=== PATIENT | male | born 1970 | race Caucasian/White ===

== ENCOUNTER 2021-12-31 18:21 | Emergency (ER) | payer MEDICAID | END 2021-12-31 19:10 | disposition left against medical advice (07) | LOC: DL.ED 18:21 | DX: Z53.21 Procedure and treatment not carried out due to patient leaving prior to being seen by health care provider (principal) ==

== ENCOUNTER 2022-07-04 20:21 | Emergency (ER) | payer MEDICAID ==
[2022-07-04 20:16] LABS: ANION GAP 18.6 mEq/L (7-13); CHLORIDE,CL 102 mmol/L (98-107); SODIUM,NA 140 mmol/L (136-145)
[2022-07-04 20:17] LABS: ESTIMATED GFR 93 mL/min (>=60)
[2022-07-04] MEDS ORDERED: Sodium Chloride 0.9% 1,000 ML IV ONE (20:25)
[2022-07-04 20:43] LABS: AMPHETAMINES,URINE NEGATIVE (NEGATIVE); BARBITURATES,URINE NEGATIVE (NEGATIVE); BENZODIAZEPINE,URINE NEGATIVE (NEGATIVE); MDMA (ECSTASY), URINE NEGATIVE (NEGATIVE); METHADONE,URINE NEGATIVE (NEGATIVE); METHAMPHETAMINES,URINE NEGATIVE (NEGATIVE); OPIATES,URINE NEGATIVE (NEGATIVE); OXYCODONE,URINE NEGATIVE (NEGATIVE); PHENCYCLIDINE,URINE NEGATIVE (NEGATIVE); TCA,URINE NEGATIVE (NEGATIVE)
[2022-07-04] MEDS ORDERED: HYDROmorphone 0.5 MG/0.5 ML Syringe IVPUSH ONE (20:53)
== END 2022-07-04 21:14 | disposition home or self-care (01) ==
LOC: DL.ED 20:21
DX: M54.50 Low back pain, unspecified (principal); M25.561 Pain in right knee; G89.29 Other chronic pain; F10.10 Alcohol abuse, uncomplicated; R44.1 Visual hallucinations; Z91.030 Bee allergy status; Z88.5 Allergy status to narcotic agent
CPT/HCPCS: 36415; 80053; 80305; 80307; 81001; 83605; 85025; 96374; 99284; J1170; J7030; 99283

== ENCOUNTER 2022-08-06 19:39 | Emergency (ER) | payer MEDICAID | END 2022-08-06 20:37 | disposition left against medical advice (07) | LOC: DL.ED 19:39 | DX: Z53.21 Procedure and treatment not carried out due to patient leaving prior to being seen by health care provider (principal) | CPT/HCPCS: 73562-RT ==

== ENCOUNTER 2023-01-02 16:48 | Inpatient (IN) | payer MEDICAID ==
[2023-01-02] MEDS ORDERED: Sodium Chloride 0.9% 10 ML Syringe FLUSH PRN (16:54)
[2023-01-02] MEDS ORDERED: Sodium Chloride 0.9% 1,000 ML IV ONE ×2 (16:54→17:53)
[2023-01-02] MEDS ORDERED: levETIRAcetam in NaCl (iso-os) 3,000 MG in Premix Bag 1 BAG IV ONE ×2 (17:08)
[2023-01-02 17:18] LABS: BASOPHILS PERCENT AUTO 0.3 % (0.0-1.0); EOSINOPHILS PERCENT AUTO 5.7 % (1.0-3.0); HEMATOCRIT 47.6 % (40.0-54.0); HEMOGLOBIN 16.2 g/dL (14.0-18.0); LYMPHOCYTES PERCENT AUTO 41.9 % (20.5-50.1); MEAN CORPUSCULAR HEMOGLOBIN 31.4 pg (27.0-34.0); MEAN CORPUSCULAR VOLUME 92.2 fL (80-100); MONOCYTES PERCENT AUTO 10.7 % (2-8); NEUTROPHILS PERCENT AUTO 41.4 % (42.2-75.2); PLATELET COUNT,PLT 406 10^3/uL (150-450); RED BLOOD CELL COUNT 5.16 10^6/uL (4.6-6.2); WHITE BLOOD CELL COUNT,WBC 8.9 10^3/uL (5.0-10.0)
[2023-01-02 17:34] LABS: A/G RATIO 0.9; ALBUMIN 3.4 g/dL (3.4-5.0); ANION GAP 16.9 mEq/L (7-13); BILIRUBIN TOTAL 0.2 mg/dL (0.2-1.0); CALCIUM 8.7 mg/dL (8.5-10.1); CREATININE 0.99 mg/dL (0.70-1.30); EST CRCL DRUG DOSING (CG) 95.08 mL/min; POTASSIUM,K 2.9 mmol/L (3.5-5.1); PROTEIN TOTAL,TP 7.2 g/dL (6.4-8.2)
[2023-01-02 17:39] LABS: APPEARANCE,URINE CLEAR (CLEAR); BILIRUBIN,URINE NEGATIVE (NEGATIVE); COLOR,URINE YELLOW (YELLOW); GLUCOSE,URINE NEGATIVE (NEGATIVE); KETONES,URINE NEGATIVE (NEGATIVE); LEUKOCYTE ESTERASE,URINE NEGATIVE (NEGATIVE); NITRITE,URINE NEGATIVE (NEGATIVE); OCCULT BLOOD,URINE TRACE-INTACT (NEGATIVE); PH,URINE 6.5 (5.0-9.0); PROTEIN,URINE NEGATIVE (NEGATIVE); UROBILINOGEN,URINE 0.2 mg/dL (0.2-1.0)
[2023-01-02 17:44] LABS: AMPHETAMINES,URINE NEGATIVE (NEGATIVE); BARBITURATES,URINE NEGATIVE (NEGATIVE); BENZODIAZEPINE,URINE NEGATIVE (NEGATIVE); MDMA (ECSTASY), URINE NEGATIVE (NEGATIVE); METHADONE,URINE NEGATIVE (NEGATIVE); METHAMPHETAMINES,URINE NEGATIVE (NEGATIVE); OPIATES,URINE NEGATIVE (NEGATIVE); PHENCYCLIDINE,URINE NEGATIVE (NEGATIVE); TCA,URINE NEGATIVE (NEGATIVE)
[2023-01-02 17:45] LABS: OXYCODONE,URINE NEGATIVE (NEGATIVE)
[2023-01-02 17:47] LABS: LACTIC ACID 4.6 mmol/L (0.4-2.0)
[2023-01-02] MEDS ORDERED: Potassium Chloride 10 MEQ Tab.ER PO ONE (17:52)
[2023-01-02] MEDS ORDERED: Potassium Chloride 10 MEQ in Premix Bag 1 BAG IV ONE (17:52)
[2023-01-02 17:54] LABS: BACTERIA,URINE NOT SEEN /HPF (0-FEW/HPF); EPITHELIAL CELLS,URINE NOT SEEN /HPF (NOT SEEN); RBC,URINE 0-5 /HPF (0-5); WBC,URINE NOT SEEN /HPF (0-5/HPF)
[2023-01-02 18:04] LABS: PROTHROMBIN TIME 10.3 SEC (9.0-12.0); PTT,PARTIAL THROMBOPLSTIN TIME 23.5 SEC (22.0-34.0)
[2023-01-02] MEDS ORDERED: Ondansetron 4 MG/2 ML SDV IVPUSH ONE (19:17)
[2023-01-02] MEDS ORDERED: Bisacodyl 5 MG Tab PO PRN (22:00)
[2023-01-02] MEDS ORDERED: Acetaminophen 325 MG Tab PO PRN (22:00)
[2023-01-02] MEDS ORDERED: Docusate Sodium 100 MG Cap PO PRN (22:00)
[2023-01-02] MEDS ORDERED: LORazepam 2 MG/ML SDV IV PRN (22:09)
[2023-01-02] MEDS ORDERED: LORazepam 0.5 MG Tab PO PRN (22:09)
[2023-01-02] MEDS ORDERED: levETIRAcetam 500 MG Tab PO SCH (22:15)
[2023-01-02] MEDS ORDERED: Thiamine 100 MG Tab PO SCH (22:15)
[2023-01-02] MEDS ORDERED: Loratadine 10 MG Tab PO ONE (22:19)
[2023-01-02] MEDS ORDERED: Ondansetron 4 MG/2 ML SDV IVPUSH PRN (23:00)
[2023-01-03 06:38] LABS: ALANINE AMINOTRANSFERASE,ALT 33 U/L (16-63); ALBUMIN 3.2 g/dL (3.4-5.0); ALKALINE PHOSPHATASE 158 U/L (46-116); ANION GAP 15.9 mEq/L (7-13); ASPARTATE AMNIOTRANSFERASE,AST 17 U/L (15-37); BILIRUBIN TOTAL 0.3 mg/dL (0.2-1.0); BLOOD UREA NITROGEN,BUN 6 mg/dL (7-18); BUN/CREATININE RATIO 5.9 (No establ ref range); CALCIUM 8.8 mg/dL (8.5-10.1); CARBON DIOXIDE,CO2 25 mmol/L (21-32); CHLORIDE,CL 106 mmol/L (98-107); CREATININE 1.01 mg/dL (0.70-1.30); EST CRCL DRUG DOSING (CG) 93.19 mL/min; GLUCOSE RANDOM 135 mg/dL (70-99); MAGNESIUM 1.6 mg/dL (1.8-2.4); POTASSIUM,K 3.9 mmol/L (3.5-5.1); PROTEIN TOTAL,TP 7.1 g/dL (6.4-8.2); SODIUM,NA 143 mmol/L (136-145)
[2023-01-03 06:39] LABS: A/G RATIO 0.82; ESTIMATED GFR 91 mL/min (>=60); ETHANOL BLOOD MEDICAL < 3 mg/dL (0)
[2023-01-03] MEDS ORDERED: Folic Acid 1 MG Tab PO SCH (09:00)
[2023-01-03] MEDS ORDERED: ClonazePAM 0.5 MG Tab PO SCH (09:00)
[2023-01-03] MEDS ORDERED: Enoxaparin 40 MG/0.4 ML Syringe SUBCUT SCH (09:00)
[2023-01-03] MEDS ORDERED: Loratadine 10 MG Tab PO SCH (09:00)
== END 2023-01-03 08:20 | disposition home or self-care (01) | DRG 101 ==
LOC: DL.ED 16:48 → DL.MS 21:32 → UNDOADMIN 21:32
PROVIDERS: ADMIT Internal Medicine; ATTEND Internal Medicine
DX: G40.909 Epilepsy, unspecified, not intractable, without status epilepticus (principal); L50.0 Allergic urticaria; E87.6 Hypokalemia; M19.90 Unspecified osteoarthritis, unspecified site; G43.909 Migraine, unspecified, not intractable, without status migrainosus; F32.A Depression, unspecified; F12.20 Cannabis dependence, uncomplicated; Y90.6 Blood alcohol level of 120-199 mg/100 ml; F10.129 Alcohol abuse with intoxication, unspecified; F43.10 Post-traumatic stress disorder, unspecified; F41.0 Panic disorder [episodic paroxysmal anxiety]; F17.210 Nicotine dependence, cigarettes, uncomplicated; Z87.11 Personal history of peptic ulcer disease; Z88.5 Allergy status to narcotic agent; Z91.030 Bee allergy status; Z79.899 Other long term (current) drug therapy; Z98.890 Other specified postprocedural states; Z91.148 Patient's other noncompliance with medication regimen for other reason
CPT/HCPCS: 36415; 80053; 80305-QW; 80307; 81001; 82947; 83605; 83735; 85025; 85610; 85730; 96365; 96367; 96375; 96376; 99222; 99238; 99285-25; A9270-GY; J1953; J2405; J3360; J3480; J3490; J7030

== ENCOUNTER 2023-03-20 12:35 | Emergency (ER) | payer MEDICAID ==
[2023-03-20] MEDS ORDERED: Sodium Chloride 0.9% 10 ML Syringe FLUSH PRN (13:00)
[2023-03-20] MEDS ORDERED: Lidocaine 2% Viscous Solution 15 ML UD PO ONE (13:01)
[2023-03-20] MEDS ORDERED: diphenhydrAMINE 12.5 MG/5 ML Liquid 5 ML UD Cup PO ONE (13:02)
[2023-03-20] MEDS ORDERED: Aluminum Hydroxide/Magnesium Hydroxide/Simethicone Susp 30 ML Cup PO ONE (13:02)
[2023-03-20] MEDS ORDERED: Ondansetron 4 MG/2 ML SDV IVPUSH ONE ×2 (13:04→15:51)
[2023-03-20 13:14] LABS: HEMATOCRIT 51.2 % (40.0-54.0); HEMOGLOBIN 17.6 g/dL (14.0-18.0); MEAN CORPUSCULAR HEMOGLOBIN 31.2 pg (27.0-34.0); MEAN CORPUSCULAR HGB CONC 34.4 g/dL (33.0-35.0); MEAN CORPUSCULAR VOLUME 90.8 fL (80-100); PLATELET COUNT,PLT 364 10^3/uL (150-450); RED BLOOD CELL COUNT 5.64 10^6/uL (4.6-6.2); WHITE BLOOD CELL COUNT,WBC 15.2 10^3/uL (5.0-10.0)
[2023-03-20 13:23] LABS: BASOPHILS PERCENT AUTO 0.4 % (0.0-1.0); EOSINOPHILS PERCENT AUTO 0.5 % (1.0-3.0); MONOCYTES PERCENT AUTO 5.3 % (2-8); NEUTROPHILS PERCENT AUTO 84.8 % (42.2-75.2)
[2023-03-20 13:38] LABS: LACTIC ACID 1.1 mmol/L (0.4-2.0)
[2023-03-20 13:43] LABS: CORONAVIRUS COVID-19 NAA NEGATIVE (NEGATIVE); INFLUENZA A NAA NEGATIVE (NEGATIVE); INFLUENZA B NAA NEGATIVE (NEGATIVE)
[2023-03-20 13:43] LABS: A/G RATIO 0.9; ALANINE AMINOTRANSFERASE,ALT 34 U/L (16-63); ALBUMIN 3.8 g/dL (3.4-5.0); ALKALINE PHOSPHATASE 156 U/L (46-116); ASPARTATE AMNIOTRANSFERASE,AST 16 U/L (15-37); BILIRUBIN TOTAL 0.7 mg/dL (0.2-1.0); BLOOD UREA NITROGEN,BUN 11 mg/dL (7-18); BUN/CREATININE RATIO 11.6 (No establ ref range); C-REACTIVE PROTEIN 1.77 ng/dL (<=0.50); CALCIUM 9.6 mg/dL (8.5-10.1); CARBON DIOXIDE,CO2 24 mmol/L (21-32); CHLORIDE,CL 99 mmol/L (98-107); CREATININE 0.95 mg/dL (0.70-1.30); EST CRCL DRUG DOSING (CG) 99.08 mL/min; GLUCOSE RANDOM 93 mg/dL (70-99); MAGNESIUM 2.1 mg/dL (1.8-2.4); PROTEIN TOTAL,TP 7.9 g/dL (6.4-8.2); SODIUM,NA 135 mmol/L (136-145)
[2023-03-20 13:45] LABS: ESTIMATED GFR 98 mL/min (>=60)
[2023-03-20 13:46] LABS: AMYLASE 963 U/L (25-115); LIPASE > 250 U/L (16-77)
[2023-03-20 13:53] LABS: BAND PERCENT MAN 2 %; LYMPHOCYTES PERCENT MAN 6 % (20-50); MONOCYTES PERCENT MAN 2 % (2-8); SEG NEUTROPHILS PERCENT MAN 90 % (42-75)
[2023-03-20] MEDS ORDERED: HYDROmorphone 0.5 MG/0.5 ML Syringe IVPUSH ONE ×2 (13:57→15:51)
[2023-03-20] MEDS ORDERED: Iopamidol 612 MG/ML 100 ML Bottle IVPUSH ONE (13:57)
[2023-03-20] MEDS ORDERED: HYDROmorphone 1 MG/ML Syringe IVPUSH ONE (14:22)
[2023-03-20] MEDS ORDERED: Sodium Chloride 0.9% 1,000 ML IV ONE (14:29)
== END 2023-03-20 16:10 | disposition home or self-care (01) ==
LOC: DL.ED 12:35
DX: K85.20 Alcohol induced acute pancreatitis without necrosis or infection (principal); Z20.822 Contact with and (suspected) exposure to COVID-19; Z79.899 Other long term (current) drug therapy; Z88.5 Allergy status to narcotic agent; Z91.030 Bee allergy status
CPT/HCPCS: 0240U; 36415; 74177; 80053; 82150; 83605; 83690; 83735; 84484; 85025; 86140; 93005; 96374; 96375; 96376; 99284; A9270; J1170; J2405; J7030; Q9967

== ENCOUNTER 2023-09-19 13:28 | Emergency (ER) | payer MEDICAID ==
[2023-09-19 13:55] LABS: BASOPHILS PERCENT AUTO 0.3 % (0.0-1.0); EOSINOPHILS PERCENT AUTO 4.4 % (1.0-3.0); HEMOGLOBIN 17.4 g/dL (14.0-18.0); LYMPHOCYTES PERCENT AUTO 19.2 % (20.5-50.1); MEAN CORPUSCULAR HEMOGLOBIN 31.6 pg (27.0-34.0); MEAN CORPUSCULAR HGB CONC 33.5 g/dL (33.0-35.0); MEAN CORPUSCULAR VOLUME 94.4 fL (80-100); MONOCYTES PERCENT AUTO 7.3 % (2-8); NEUTROPHILS PERCENT AUTO 68.8 % (42.2-75.2); PLATELET COUNT,PLT 332 10^3/uL (150-450); RED BLOOD CELL COUNT 5.51 10^6/uL (4.6-6.2); WHITE BLOOD CELL COUNT,WBC 11.8 10^3/uL (5.0-10.0)
[2023-09-19] MEDS: Sodium Chloride 0.9% 10 ML Syringe FLUSH PRN (14:22)
[2023-09-19 14:23] LABS: A/G RATIO 0.9; ALBUMIN 3.6 g/dL (3.4-5.0); ANION GAP 14.1 mEq/L (7-13); BILIRUBIN TOTAL 1.1 mg/dL (0.2-1.0); BUN/CREATININE RATIO 8.7 (No establ ref range); C-REACTIVE PROTEIN 2.51 ng/dL (<=0.50); CALCIUM 9.6 mg/dL (8.5-10.1); CREATININE 1.04 mg/dL (0.70-1.30); EST CRCL DRUG DOSING (CG) 90.5 mL/min; POTASSIUM,K 4.1 mmol/L (3.5-5.1); PROTEIN TOTAL,TP 7.8 g/dL (6.4-8.2)
[2023-09-19] MEDS: Acetaminophen 500 MG Tab PO ONE (14:34)
[2023-09-19] MEDS: Sodium Chloride 0.9% 1,000 ML IV ONE (14:34)
[2023-09-19] MEDS: Ketorolac 30 MG/ML SDV IVPUSH ONE (14:34)
[2023-09-19 15:01] LABS: APPEARANCE,URINE SLIGHTLY CLOUDY (CLEAR); BILIRUBIN,URINE SMALL (NEGATIVE); COLOR,URINE DARK YELLOW (YELLOW); GLUCOSE,URINE NEGATIVE (NEGATIVE); KETONES,URINE 15 (NEGATIVE); LEUKOCYTE ESTERASE,URINE NEGATIVE (NEGATIVE); NITRITE,URINE NEGATIVE (NEGATIVE); OCCULT BLOOD,URINE NEGATIVE (NEGATIVE); PH,URINE 7.5 (5.0-9.0); PROTEIN,URINE 30 (NEGATIVE)
[2023-09-19 15:13] LABS: WBC,URINE 0-5 /HPF (0-5/HPF)
[2023-09-19 15:14] LABS: BACTERIA,URINE FEW /HPF (0-FEW/HPF); EPITHELIAL CELLS,URINE FEW /HPF (NOT SEEN); MUCUS,URINE MODERATE /LPF (NOT SEEN)
== END 2023-09-19 15:28 | disposition home or self-care (01) ==
LOC: DL.ED 13:28
DX: A08.4 Viral intestinal infection, unspecified (principal); F17.210 Nicotine dependence, cigarettes, uncomplicated; Z88.5 Allergy status to narcotic agent; Z88.8 Allergy status to other drugs, medicaments and biological substances; Z91.030 Bee allergy status; Z79.899 Other long term (current) drug therapy
CPT/HCPCS: 36415; 80053; 81001; 83690; 85025; 86140; 96361; 96374; 99284; A9270; J1885; J7030; 99283; J3490

== ENCOUNTER 2023-12-12 22:19 | Emergency (ER) | payer MEDICARE, MEDICAID ==
[2023-12-12] MEDS ORDERED: Sodium Chloride 0.9% 10 ML Syringe FLUSH PRN (22:29)
[2023-12-12] MEDS: Iopamidol 755 Mg/ML 100 ML Bottle IVPUSH ONE (22:34)
[2023-12-12] MEDS: Sodium Chloride 0.9% 1,000 ML IV ONE (22:55)
[2023-12-12 23:14] LABS: BASOPHILS PERCENT AUTO 0.3 % (0.0-1.0); EOSINOPHILS PERCENT AUTO 1.5 % (1.0-3.0); HEMATOCRIT 54.4 % (40.0-54.0); HEMOGLOBIN 18.6 g/dL (14.0-18.0); LYMPHOCYTES PERCENT AUTO 10.5 % (20.5-50.1); MEAN CORPUSCULAR HGB CONC 34.2 g/dL (33.0-35.0); MEAN CORPUSCULAR VOLUME 90.7 fL (80-100); MONOCYTES PERCENT AUTO 5.1 % (2-8); NEUTROPHILS PERCENT AUTO 82.6 % (42.2-75.2); PLATELET COUNT,PLT 348 10^3/uL (150-450); WHITE BLOOD CELL COUNT,WBC 10.2 10^3/uL (5.0-10.0)
[2023-12-12] MEDS: LORazepam 2 MG/ML SDV IVPUSH ONE (23:28)
[2023-12-12 23:33] LABS: INR 1.2 (0.9-1.2); PROTHROMBIN TIME 11.9 SEC (9.0-12.0); PTT,PARTIAL THROMBOPLSTIN TIME 27.3 SEC (22.0-34.0)
[2023-12-12 23:44] LABS: A/G RATIO 0.9; ALANINE AMINOTRANSFERASE,ALT 31 U/L (16-63); ALBUMIN 3.7 g/dL (3.4-5.0); ALKALINE PHOSPHATASE 157 U/L (46-116); ANION GAP 12.7 mEq/L (7-13); ASPARTATE AMNIOTRANSFERASE,AST 20 U/L (15-37); BILIRUBIN TOTAL 0.5 mg/dL (0.2-1.0); BLOOD UREA NITROGEN,BUN 5 mg/dL (7-18); BUN/CREATININE RATIO 5.8 (No establ ref range); CALCIUM 9.1 mg/dL (8.5-10.1); CARBON DIOXIDE,CO2 27 mmol/L (21-32); CHLORIDE,CL 101 mmol/L (98-107); CREATININE 0.86 mg/dL (0.70-1.30); EST CRCL DRUG DOSING (CG) 93.49 mL/min; ETHANOL BLOOD MEDICAL 200 mg/dL (0); GLUCOSE RANDOM 103 mg/dL (70-99); LIPASE 42 U/L (16-77); MAGNESIUM 2.3 mg/dL (1.8-2.4); POTASSIUM,K 3.7 mmol/L (3.5-5.1); PROTEIN TOTAL,TP 7.9 g/dL (6.4-8.2); SODIUM,NA 137 mmol/L (136-145)
[2023-12-12 23:47] LABS: ESTIMATED GFR 105 mL/min (>=60); LACTIC ACID 2.7 mmol/L (0.4-2.0)
[2023-12-12 23:53] LABS: AMPHETAMINES,URINE NEGATIVE (NEGATIVE); APPEARANCE,URINE CLEAR (CLEAR); BARBITURATES,URINE NEGATIVE (NEGATIVE); BENZODIAZEPINE,URINE NEGATIVE (NEGATIVE); BILIRUBIN,URINE NEGATIVE (NEGATIVE); COLOR,URINE YELLOW (YELLOW); GLUCOSE,URINE NEGATIVE (NEGATIVE); KETONES,URINE NEGATIVE (NEGATIVE); LEUKOCYTE ESTERASE,URINE NEGATIVE (NEGATIVE); MDMA (ECSTASY), URINE NEGATIVE (NEGATIVE); METHADONE,URINE NEGATIVE (NEGATIVE); METHAMPHETAMINES,URINE NEGATIVE (NEGATIVE); NITRITE,URINE NEGATIVE (NEGATIVE); OCCULT BLOOD,URINE NEGATIVE (NEGATIVE); OPIATES,URINE NEGATIVE (NEGATIVE); OXYCODONE,URINE NEGATIVE (NEGATIVE); PH,URINE 5.5 (5.0-9.0); PHENCYCLIDINE,URINE NEGATIVE (NEGATIVE); PROTEIN,URINE NEGATIVE (NEGATIVE); TCA,URINE NEGATIVE (NEGATIVE); UROBILINOGEN,URINE 0.2 mg/dL (0.2-1.0)
[2023-12-13] MEDS: Tenecteplase 50 MG Kit IV ONE (00:14)
[2023-12-13] MEDS: Sodium Chloride 0.9% 1,000 ML IV ONE (00:20)
[2023-12-13] MEDS: LORazepam 2 MG/ML SDV ONE (02:03)
== END 2023-12-13 01:15 ==
LOC: DL.ED 22:19
DX: I63.9 Cerebral infarction, unspecified (principal); F10.929 Alcohol use, unspecified with intoxication, unspecified; Z79.899 Other long term (current) drug therapy; Z91.030 Bee allergy status; Z88.5 Allergy status to narcotic agent
CPT/HCPCS: 36415; 70450; 70496; 70498; 71045; 80053; 80305-QW; 80307; 81003; 83605; 83690; 83735; 84484; 85025; 85610; 85730; 93005; 93010; 96361; 96374; 96375; 99285; 99285-25; J2060; J3101; J7030; Q9967

== ENCOUNTER 2024-09-22 18:49 | Emergency (ER) | payer MEDICARE, OTHER ==
[2024-09-22] MEDS ORDERED: Sodium Chloride 0.9% 10 ML Syringe FLUSH PRN (19:01)
[2024-09-22] MEDS: methylPREDNISolone Sodium Succinate 125 MG/2 ML SDV IVPUSH ONE (19:06)
[2024-09-22 19:11] LABS: HEMATOCRIT 51.5 % (40.0-54.0); MEAN CORPUSCULAR HEMOGLOBIN 33.7 pg (27.0-34.0); MEAN CORPUSCULAR VOLUME 96.4 fL (80-100); PLATELET COUNT,PLT 365 10^3/uL (150-450); RED BLOOD CELL COUNT 5.34 10^6/uL (4.6-6.2); WHITE BLOOD CELL COUNT,WBC 14.4 10^3/uL (5.0-10.0)
[2024-09-22 19:18] LABS: BASOPHILS PERCENT AUTO 0.4 % (0.0-1.0); EOSINOPHILS PERCENT AUTO 2.6 % (1.0-3.0); LYMPHOCYTES PERCENT AUTO 16.7 % (20.5-50.1); MONOCYTES PERCENT AUTO 10.4 % (2-8); NEUTROPHILS PERCENT AUTO 69.9 % (42.2-75.2)
[2024-09-22 19:32] LABS: PROTHROMBIN TIME 10.4 SEC (9.0-12.0); PTT,PARTIAL THROMBOPLSTIN TIME 28.5 SEC (22.0-34.0)
[2024-09-22 19:36] LABS: LACTIC ACID 0.8 mmol/L (0.4-2.0)
[2024-09-22 19:38] LABS: A/G RATIO 0.8; ALBUMIN 3.6 g/dL (3.4-5.0); ANION GAP 13.6 mEq/L (7-13); BILIRUBIN TOTAL 0.6 mg/dL (0.2-1.0); BUN/CREATININE RATIO 11.1 (No establ ref range); C-REACTIVE PROTEIN 3.52 ng/dL (<=0.50); CALCIUM 9.7 mg/dL (8.5-10.1); CREATININE 0.9 mg/dL (0.70-1.30); EST CRCL DRUG DOSING (CG) 102.17 mL/min; POTASSIUM,K 3.6 mmol/L (3.5-5.1); PROTEIN TOTAL,TP 7.9 g/dL (6.4-8.2)
[2024-09-22 19:48] LABS: BAND PERCENT MAN 1 %; EOSINOPHILS PERCENT MAN 2 % (1-3); LYMPHOCYTES PERCENT MAN 19 % (20-50); MONOCYTES PERCENT MAN 9 % (2-8); SEG NEUTROPHILS PERCENT MAN 69 % (42-75)
[2024-09-22] MEDS: Azithromycin 250 MG Tab PO ONE (19:48)
== END 2024-09-22 20:12 | disposition home or self-care (01) ==
LOC: DL.ED 18:49
DX: J02.9 Acute pharyngitis, unspecified (principal); Z88.5 Allergy status to narcotic agent; Z91.030 Bee allergy status; Z79.899 Other long term (current) drug therapy
CPT/HCPCS: 36415; 71045; 80053; 83605; 83880; 84484; 85025; 85610; 85730; 86140; 87081; 87428; 87430; 93005; 93010; 96374; 99283; 99284; A9270; J2919

== ENCOUNTER 2024-11-27 05:47 | Day surgery (SDC) | payer MEDICARE ==
[2024-11-27] MEDS ORDERED: Lactated Ringers 1,000 ML IV ONE (05:48)
[2024-11-27] MEDS ORDERED: Propofol 200 MG/20 ML SDV IV ONE (05:48)
[2024-11-27] MEDS ORDERED: Sodium Chloride 0.9% 10 ML Syringe IV ONE (05:48)
[2024-11-27] MEDS: Lactated Ringers 1,000 ML IV SCH (06:17)
[2024-11-27 07:38] VITALS: BP 134/80; PULSE 75
[2024-11-27] MEDS ORDERED: Propofol 200 MG/20 ML SDV ONE (10:09)
== END 2024-11-27 08:32 | disposition home or self-care (01) ==
LOC: DL.ENDO 05:47
PROVIDERS: ATTEND Internal Medicine Gastroenterology
DX: K62.5 Hemorrhage of anus and rectum (principal); K59.09 Other constipation; G89.4 Chronic pain syndrome; K21.9 Gastro-esophageal reflux disease without esophagitis; F17.210 Nicotine dependence, cigarettes, uncomplicated; Z88.5 Allergy status to narcotic agent; Z88.8 Allergy status to other drugs, medicaments and biological substances; Z91.030 Bee allergy status; Z79.899 Other long term (current) drug therapy
CPT/HCPCS: 00812; J2704; J7120

== ENCOUNTER 2025-02-09 13:14 | Emergency (ER) | payer MEDICARE ==
[2025-02-09] MEDS: LORazepam 2 MG/ML SDV IM ONE (13:36)
[2025-02-09] MEDS ORDERED: Sodium Chloride 0.9% 10 ML Syringe FLUSH PRN (13:57)
[2025-02-09] MEDS: LORazepam 2 MG/ML SDV IVPUSH ONE (13:59)
[2025-02-09] MEDS: MVI, Adult with Vitamin K 10 ML, Folic Acid 1 MG, Thiamine 100 MG in Lactated Ringers 1... IV ONE (14:03)
[2025-02-09] MEDS: LORazepam 2 MG/ML SDV ONE (14:07)
[2025-02-09 14:13] LABS: BASOPHILS PERCENT AUTO 1.0 % (0.0-1.0); EOSINOPHILS PERCENT AUTO 4.2 % (1.0-3.0); LYMPHOCYTES PERCENT AUTO 29.8 % (20.5-50.1); MONOCYTES PERCENT AUTO 13.5 % (2-8); NEUTROPHILS PERCENT AUTO 51.5 % (42.2-75.2); PLATELET COUNT,PLT 308 10^3/uL (150-450); RED BLOOD CELL COUNT 5.30 10^6/uL (4.6-6.2); WHITE BLOOD CELL COUNT,WBC 9.3 10^3/uL (5.0-10.0)
[2025-02-09 14:36] LABS: BLOOD UREA NITROGEN,BUN 5 mg/dL (7-18); CARBON DIOXIDE,CO2 26 mmol/L (21-32); CHLORIDE,CL 101 mmol/L (98-107); CREATININE 0.92 mg/dL (0.70-1.30); GLUCOSE RANDOM 105 mg/dL (70-99)
[2025-02-09 14:41] LABS: SODIUM,NA 142 mmol/L (136-145)
[2025-02-09 14:46] LABS: POTASSIUM,K 4.3 mmol/L (3.5-5.1)
[2025-02-09 14:47] LABS: ESTIMATED GFR 100 mL/min (>=60); ETHANOL BLOOD MEDICAL 340 mg/dL (0)
[2025-02-11] MEDS: Ondansetron 4 MG/2 ML SDV IVPUSH ONE (11:00)
== END 2025-02-09 15:26 | disposition home or self-care (01) ==
LOC: DL.ED 13:14
DX: F41.0 Panic disorder [episodic paroxysmal anxiety] (principal); F10.929 Alcohol use, unspecified with intoxication, unspecified; K21.9 Gastro-esophageal reflux disease without esophagitis; Z88.5 Allergy status to narcotic agent; Z91.030 Bee allergy status; Z79.899 Other long term (current) drug therapy; Y90.8 Blood alcohol level of 240 mg/100 ml or more
CPT/HCPCS: 36415; 70360; 71045; 80048; 80307; 82947; 83735; 85025; 96365; 96372; 96375; 99284; 99285; J1808; J2060; J3411; J7120; J3490

== ENCOUNTER 2025-02-09 15:57 | Emergency (ER) | payer MEDICARE | END 2025-02-09 17:32 | disposition left against medical advice (07) | LOC: DL.ED 15:57 | DX: S16.1XXA Strain of muscle, fascia and tendon at neck level, initial encounter (principal); S39.012A Strain of muscle, fascia and tendon of lower back, initial encounter; K21.9 Gastro-esophageal reflux disease without esophagitis; Z91.030 Bee allergy status; Z88.5 Allergy status to narcotic agent; Z79.899 Other long term (current) drug therapy; X58.XXXA Exposure to other specified factors, initial encounter; Y93.89 Activity, other specified | CPT/HCPCS: 72125; 72131; 99283; 99284 ==